=== PATIENT | male | born 1965 | race African-American/Black ===

== ENCOUNTER → 2021-03-22 | Outpatient (CLI) | payer OTHER | LOC: LAB 10:07 | PROVIDERS: ATTEND Surgery | DX: Z01.812 Encounter for preprocedural laboratory examination (principal); Z20.822 Contact with and (suspected) exposure to COVID-19; K40.90 Unilateral inguinal hernia, without obstruction or gangrene, not specified as recurrent | CPT/HCPCS: U0003; U0005 ==

== ENCOUNTER → 2021-03-30 | Outpatient (CLI) | payer OTHER ==
[~2021-03-30] MED LIST: AMLO-187 PO; OXYC-325 PO
== END ==
LOC: LAB 09:49
PROVIDERS: ATTEND Surgery
DX: Z01.812 Encounter for preprocedural laboratory examination (principal); Z20.822 Contact with and (suspected) exposure to COVID-19
CPT/HCPCS: U0003; U0005

== ENCOUNTER 2021-04-01 09:52 | Day surgery (SDC) | payer OTHER ==
[~2021-04-01] VITALS: Ht 180.3 cm; Wt 83.5 kg
[~2021-04-01 09:52] MED LIST changes: +ACETAMINOPHEN 500 MG TABLET PO PRN; -AMLO-187 PO; +BUPIVACAINE-EPI 0.25%-1:200000 MPF 30 ML VIAL. ONE; +HYDROmorphone 2 MG/ML VIAL IVP PRN; +IV RINGERS,LACTATED 1000ML 1,000 ML IV SCH; +MINERAL OIL for SURGERY 10 ML VIAL. MC ONE; -OXYC-325 PO; +PROCHLORPERAZINE 10 MG/2 ML VIAL. IVP PRN; +SUGAMMADEX SODIUM 200 MG/2 ML VIAL. IVP ONE; +fentaNYL PF VIAL 100 MCG/2 ML VIAL IVP PRN
[2021-04-01] MEDS ORDERED: AMLO-187 PO (10:25)
[2021-04-01] MEDS ORDERED: PROPOFOL 10 MG/ML (20ML) VIAL. IV ONE (11:09)
[2021-04-01] MEDS ORDERED: ROCURONIUM 50 MG/5 ML VIAL. ONE (11:09)
[2021-04-01] MEDS ORDERED: fentaNYL PF VIAL 250 MCG/5 ML VIAL ONE (11:09)
[2021-04-01] MEDS ORDERED: LIDOCAINE 2% PF 5 ML VIAL. ONE (11:09)
[2021-04-01] MEDS ORDERED: GLYCOPYRROLATE 1 MG/5 ML VIAL. ONE (12:20)
[2021-04-01] MEDS ORDERED: BUPIVACAINE-EPI 0.25%-1:200000 MPF 30 ML VIAL. INJ ONE (12:25)
--- NOTE | 2021-04-01 13:11 | PDOC4 ---
Operative Note Operative Note Date: April [id number] at 1308 Preoperative diagnosis left inguinal hernia Postoperative diagnosis: Same Procedure: Robotic assisted laparoscopic left inguinal hernia repair with mesh Surgeon: Fabian Specimen: None Dictation: Patient is a 55-year-old gentleman who is seen in the emergency department with an incarcerated left inguinal hernia which was reduced at the time. Now he follows up to have repair. The procedure of robotic assisted lapa roscopic left inguinal hernia repair with mesh was explained to the patient in detail risk benefits were also discussed including bleeding infection injury to intra-abdominal contents possible necessitating further open operations alternatives to this procedure also discussed with the patient who seemed to understand and gave a verbal and written consent to have the procedure perfo rmed. Patient was taken to the operating room placed in the supine position general anesthesia was initiated once patient was sleeping intubated his abdomen was prepped and draped usual sterile fashion using ChloraPrep. Area just below the umbilicus was injected with quarter percent Marcaine with epinephrine incision was made 11 blade scalpel and a varies needle was placed within the abdomen creating pneumoperitoneum once this was complete a millimeter da Albert port was placed and a a Jensen da Albert camera is placed within the abdomen which was inspected no other abnormalities were noted it was noted that the left inguinal hernia did have some incarcerated colon within the hernia defect. 8 mm da Albert ports placed in the left midabdomen and an 8 mm da Albert ports placed in the right midabdomen the da Albert robot is brought and docked all port sites the surgeon went to the robotic console using a grasper and Endo Darvin scissors the incarcerated colon within the hernia defect was reduced the peritoneum over the left side was incised a window was propagated posteriorly reducing the hernia sac and contents. A large Bard 3D max mesh for the left side was placed and the peritoneum was closed with a running 2 OV lock absorbable suture. Suture was moved from the abdomen the pneumoperitoneum was reduced da Albert robot was undocked and removed all ports were removed and the port sites were all closed with 4-0 subcuticular Monocryl Mastisol Steri-Strips and island dressings were applied. Patient was awakened extubated in the operating room taken recovery in stable condition all sponge instrument needle counts listed as correct estimated blood loss 20 mL. THEODORE LEWIS MD Apr 01, 2021 13:11
[2021-04-01] MEDS ORDERED: OXYC-325 PO (13:12)
--- NOTE | 2021-04-01 13:14 | DISCH ---
DISCHARGE INSTRUCTIONS Condition on Discharge Condition on Discharge: Stable Activity After Discharge Activity Instructions for Disc: Avoid exertion Other activity instructions: No lifting more than 20 pounds for 2-week Diet after Discharge Diet after Discharge: Regular Wound Incision Care Other wound/incision instructi: May shower in 24 hours Contacting the after DC Call your doctor for: If your condition worsens Follow-Up Follow up with: Dr. Lewis in 2 weeks THEODORE LEWIS MD Apr 01, 2021 13:14
[2021-04-01 13:39] VITALS: BP 123/81
[2021-04-01] MEDS ORDERED: oxyCODONE/APAP 5/325 1 TAB TABLET PO ONE (13:45)
[2021-04-01] MEDS ORDERED: MORPHINE SULFATE 2 MG/ML INJ. ONE (13:46)
[2021-04-01] MEDS: MORPHINE SULFATE 2 MG/ML INJ. IVP PRN ×2 (13:48→13:59)
== END 2021-04-01 14:19 | disposition home or self-care (01) ==
LOC: SURG 09:52
PROVIDERS: ATTEND Surgery
DX: K40.30 Unilateral inguinal hernia, with obstruction, without gangrene, not specified as recurrent (principal); I10 Essential (primary) hypertension; Z79.899 Other long term (current) drug therapy; Z87.891 Personal history of nicotine dependence; Z98.890 Other specified postprocedural states
CPT/HCPCS: 49650; J0690; J2270; J2704; J3010; J3490; S2900; A4223; A4364; A4657; A4930; A6219; C1781